=== PATIENT | female | born 1955 | race Caucasian/White ===

== ENCOUNTER 2020-02-28 13:45 | Outpatient (CLI) | payer MEDICARE | END 2020-02-28 13:46 | disposition critical access hospital (66) | LOC: EMS 13:45 | PROVIDERS: ATTEND Surgery | DX: R25.3 Fasciculation (principal); R41.82 Altered mental status, unspecified | CPT/HCPCS: A0425; A0427 ==

== ENCOUNTER 2020-02-28 14:10 | Emergency (ER) | payer MEDICARE ==
--- NOTE | 2020-02-28 14:24 | ED Physician Documentation ---
History of Present Illness - Stated complaint Stated Complaint: SZ - History obtained from History obtained from: EMS - Additonal information Additional information: Patient sent to the emergency department via EMS after noticed seizure- like activity at home. Patient has seemed less responsive than usual today, though her baseline is nonverbal and needs assistance with all activities of daily living. Patient has not been sick with anything recently that the knows of. He did notice this morning, however, that the patient was having regular episodes of right facial grimacing with twitching around her right eye and clenching of her right fist. Medics state that she was given Valium in route, but that Patient had another episode about 5 minutes later. Medics state they have noticed that the patient opens her eyes looks to the right, and then begins to twitch. The patient does not have a seizure history that anybody knows of. Her underlying condition is MS. Patients not able to offer any information. Review of Systems Unable to obtain: Unresponsive PD PAST MEDICAL HISTORY - Present Medications Home Medications: Ambulatory Orders Medication Instructions Recorded Confirmed Atorvastatin [Lipitor] 20 mg PO DAILY 02/28/20 02/28/20 Baclofen 5 mg PO BID 02/28/20 02/28/20 FLUoxetine [PROzac] 20 mg PO BID 02/28/20 02/28/20 LORazepam [Lorazepam] 0.5 mg PO BID 02/28/20 02/28/20 Lactulose 15 ml PO DAILY 02/28/20 02/28/20 - Allergies Allergies/Adverse Reactions: Allergies Allergy/AdvReac Type Severity Reaction Status Date / Time Penicillins Allergy Unknown Verified 02/28/20 19:07 PD ED PE NORMAL - Vitals Vital signs reviewed: Yes - General General: No acute distress, Other (Patient is obtunded laying in bed.) - HEENT HEENT: Atraumatic, Moist mucous membranes - Neck Neck: Supple, no meningeal sign - Cardiac Cardiac: RRR, No murmur, Strong equal pulses - Respiratory Respiratory: No respiratory distress, Clear bilaterally - Abdomen Abdomen: Soft, Non tender, Non distended - Derm Derm: Normal color, Warm and dry, No rash - Extremities Extremities: No deformity, No edema - Neuro Neuro: Other (Patient is not able to comply with neurologic exam. She is noted to have an episode) - Psych Psych: Other (Pt is obtunded and nonverbal.) Results - Vitals Vitals: Vital Signs - 24 hr 02/28/20 02/28/20 02/28/20 14:18 14:25 14:55 Temperature 37.2 C 37.2 C Heart Rate 107 H 107 H 101 H Respiratory 16 16 16 Rate Blood Pressure 143/81 H 143/81 H 151/81 H O2 Saturation 93 93 94 02/28/20 02/28/20 02/28/20 15:25 15:30 16:00 Temperature Heart Rate 102 H 102 H 99 Respiratory 16 14 16 Rate Blood Pressure 138/75 H 148/74 H 141/74 H O2 Saturation 94 92 92 02/28/20 02/28/20 02/28/20 16:30 17:00 17:30 Temperature Heart Rate 98 105 H 99 Respiratory 16 14 22 Rate Blood Pressure 140/72 H 149/78 H 152/74 H O2 Saturation 92 92 92 02/28/20 02/28/20 02/28/20 18:00 18:30 19:00 Temperature Heart Rate 100 100 102 H Respiratory 20 24 24 Rate Blood Pressure 150/72 H 150/76 H 151/77 H O2 Saturation 92 92 92 02/28/20 02/28/20 02/28/20 19:30 20:07 20:36 Temperature Heart Rate 100 99 103 H Respiratory 20 26 H 23 Rate Blood Pressure 151/77 H 156/76 H 147/81 H O2 Saturation 92 98 93 02/28/20 21:00 Temperature Heart Rate 100 Respiratory 22 Rate Blood Pressure 146/80 H O2 Saturation 94 Oxygen O2 Source Nasal cannula - Labs Labs: Laboratory Tests 02/28/20 02/28/20 02/28/20 15:10 15:31 15:31 WBC 21.0 H RBC 4.45 Hgb 14.5 Hct 45.4 MCV 102.0 H MCH 32.6 H MCHC 31.9 L RDW 14.0 Plt Count 287 MPV 10.2 Neut # (Auto) 19.6 H Lymph # (Auto) 0.4 L Bennett # (Auto) 0.8 Eos # (Auto) 0.1 Baso # (Auto) 0.1 Absolute Nucleated RBC 0.00 Band Neuts % (Manual) Not Reportable Abnorm Lymph % (Manual) Not Reportable Nucleated RBC % 0.0 Neutrophils # (Manual) Not Reportable Lymphocytes # (Manual) Not Reportable Monocytes # (Manual) Not Reportable Eosinophils # (Manual) Not Reportable Basophils # (Manual) Not Reportable Differential Comment MANUAL=AUTO DIFF Manual Slide Review Indicated Platelet Estimate NORMAL (130-450,000) Platelet Morphology 1+ LARGE PLATELETS RBC Morph Micro Appear 1+ MACROCYTOSIS Sodium 140 Potassium 3.8 Chloride 105 Carbon Dioxide 27 Anion Gap 8.0 BUN 22 H Creatinine 0.5 Estimated GFR (MDRD) 125 Glucose 163 H Calcium 9.0 Total Bilirubin 0.6 AST 21 ALT 39 Alkaline Phosphatase 112 Total Protein 7.5 Albumin 3.9 Globulin 3.6 Albumin/Globulin Ratio 1.1 Lipase 22 Urine Color YELLOW Urine Clarity CLOUDY Urine pH >=9.0 H Ur Specific [place] 1.015 Urine Protein 100 H Urine Glucose (UA) NEGATIVE Urine Ketones NEGATIVE Urine Occult Blood NEGATIVE Urine Nitrite NEGATIVE Urine Bilirubin NEGATIVE Urine Urobilinogen 0.2 (NORMAL) Ur Leukocyte Esterase SMALL H Urine RBC None Seen Urine WBC 0-3 Ur Squamous Epith Cells MANY Squamous H Amorphous Sediment Moderate Urine Bacteria Many H Ur Microscopic Review INDICATED Urine Culture Comments NOT INDICATED - Rads (name of study) CT head Radiology: Final report received, EMP read indepedently, See rad report (negative) PD MEDICAL DECISION MAKING - ED course Complexity details: reviewed old records, reviewed results, re-evaluated patient, considered differential ED course: The pt was given Ativan IV in the ED for her seizure-like episodes, and was found to have improved, with no further witnessed episodes. Labs and CT were unremarkable, other than WBC count 21. UA was negative. I spoke with Dr. Vigil, the triage physician for [facility], and he arranged transfer to [facility] with Dr. Jorge mcdonald. Pt was loaded with Keppra at accepting physician's request. I did attempt to get a hold of the pt's at the number in the chart, and he did not answer. I left a message, but did not receive a return phone call to discuss the pt's care and plan. Departure - Departure Disposition: 02 Transfer Acute Care Hosp Clinical Impression: New onset seizure Condition: Serious Discharge Date/Time: 02/28/20 21:00
[2020-02-28] MEDS ORDERED: LORazepam 2 MG/ML VIAL IVP STA (14:49)
--- NOTE | 2020-02-28 14:51 | CT Report ---
PROCEDURE: HEAD WO INDICATIONS: new-onset seizure-like activity TECHNIQUE: Noncontrast 4.5 mm thick angled axial sections acquired from the foramen magnum to the vertex. For r adiation dose reduction, the following was used: automated exposure control, adjustment of mA and/or kV according to patient size. COMPARISON: None FINDINGS: Image quality: Excellent. CSF spaces: Basal cisterns are patent. No extra-axial fluid collections. The ventricles are symmet thelma in size and shape. Brain: No intracranial bleeds or masses. There is cerebral volume loss for age, with resultant vent ricular and sulcal prominence. There are periventricular and deep white matter chronic small vessel ischemic changes. There is intracranial internal carotid artery atherosclerosis. Skull and face: Calvarium and visualized facial bones appear intact, without suspicious lesions. Sinuses: Visualized sinuses and mastoids are clear. IMPRESSION: No acute intracranial disease process. Reviewed by: Nathalia Reyes MD, PhD on 02/28/2020 2:50 PM PDT Approved by: Nathalia Reyes MD, PhD on 02/28/2020 2:50 PM PDT Station ID: [id number]
[2020-02-28 15:25] LABS: BILIRUBIN,URINE NEGATIVE (NEGATIVE); GLUCOSE, URINE (UA) NEGATIVE (NEGATIVE); KETONES,URINE (UA) NEGATIVE (NEGATIVE); LEUKOCYTE ESTERASE, URINE SMALL (NEGATIVE); NITRITE,URINE NEGATIVE (NEGATIVE); OCCULT BLOOD,URINE NEGATIVE (NEGATIVE); PH,URINE >=9.0 PH (5.0-7.5); PROTEIN,URINE 100 mg/dL (NEGATIVE); UROBILINOGEN,URINE 0.2 (NORMAL) E.U./dL (NORMAL)
[2020-02-28 15:28] LABS: CLARITY,URINE CLOUDY (CLEAR)
[2020-02-28 15:36] LABS: AMORPHOUS SEDIMENT,UR Moderate /LPF; BACTERIA,URINE Many /HPF (None Seen); RBC,URINE None Seen /HPF (0-5); SQUAMOUS EPITHELIAL CELL,UR MANY Squamous (<= Few)
[2020-02-28 15:52] LABS: BASOPHILS # (AUTO) 0.1 10^3/uL (0.0-0.1); BASOPHILS % (AUTO) 0.3 %; EOSINOPHILS # (AUTO) 0.1 10^3/uL (0.0-0.7); EOSINOPHILS % (AUTO) 0.2 %; HGB - HEMOGLOBIN 14.5 g/dL (12.0-16.0); LYMPHOCYTES # (AUTO) 0.4 10^3/uL (1.5-3.5); LYMPHOCYTES % (AUTO) 1.8 %; MEAN CORPUSCULAR HEMOGLOBIN 32.6 pg (27.0-31.0); MEAN CORPUSCULAR HGB CONC 31.9 g/dL (32.0-36.0); MEAN PLATELET VOLUME 10.2 fL (7.9-10.8); MONOCYTES # (AUTO) 0.8 10^3/uL (0.0-1.0); MONOCYTES % (AUTO) 3.6 %; NEUTROPHILS # (AUTO) 19.6 10^3/uL (1.5-6.6); NEUTROPHILS % (AUTO) 93.5 %; PLT - PLATELET COUNT 287 10^3/uL (130-450); RED BLOOD COUNT 4.45 10^6/uL (4.20-5.40)
[2020-02-28 16:07] LABS: ALBUMIN 3.9 g/dL (3.2-5.5); ALBUMIN/GLOBULIN RATIO 1.1 (1.0-2.2); BILIRUBIN,TOTAL 0.6 mg/dL (0.2-1.0); CREATININE 0.5 mg/dL (0.4-1.0); TOTAL PROTEIN 7.5 g/dL (6.7-8.2)
[2020-02-28 16:25] LABS: PLATELET ESTIMATE, MANUAL NORMAL (130-450,000) (NORMAL); PLATELET MORPHOLOGY 1+ LARGE PLATELETS (NORMAL)
[2020-02-28 16:26] LABS: DIFFERENTIAL COMMENT MANUAL=AUTO DIFF
--- NOTE | 2020-02-28 17:14 | XRAY Report ---
PROCEDURE: Chest 1 View X-Ray INDICATIONS: Leukocytosis, altered level of consciousness TECHNIQUE: One view of the chest was acquired. COMPARISON: None FINDINGS: Surgical changes and devices: None. Lungs and pleura: No pleural effusions or pneumothorax. Lungs are clear. Mediastinum: Mediastinal contours appear normal. Heart size is normal. Bones and chest wall: No suspicious bony lesions. Overlying soft tissues appear unremarkable. IMPRESSION: No acute pulmonary process demonstrated radiographically. Reviewed by: Royal Plasencia MD on 02/28/2020 5:13 PM PDT Approved by: Royal Plasencia MD on 02/28/2020 5:13 PM PDT Station ID: [id number]
[2020-02-28] MEDS ORDERED: levETIRAcetam INJ 500 MG in SODIUM CHLORIDE 0.9% 100ML 100 ML IV STA (17:54)
[2020-02-28] MEDS ORDERED: cefTRIAXone 1 GM in SODIUM CHLORIDE 0.9% MINIBAG 100 ML IV STA (20:43)
[2020-02-28] MEDS ORDERED: SODIUM CHLORIDE 0.9% 1,000 ML IV STA (20:43)
[2020-02-28 21:10] VITALS: BP 146/80
== END 2020-02-28 21:00 | disposition short-term general hospital (02) ==
LOC: ED 14:10
DX: R56.9 Unspecified convulsions (principal); G35 Multiple sclerosis
CPT/HCPCS: 36415; 70450; 71045; 80053; 81001; 83690; 85025; 96365; 96375; 99285; J2060; 81003; 87086